=== PATIENT | male | born 2000 | race Caucasian/White ===

== ENCOUNTER 2023-04-06 09:12 | Emergency (ER) | payer MEDICAID, SELFPAY ==
[2023-04-06 09:25] VITALS: BP 159/102; PULSE 88; RESP 16; TEMP 36.8; O2SAT 98
--- NOTE | 2023-04-06 09:37 | CTR_ITS ---
PROCEDURE INFORMATION: Exam: CT Abdomen And Pelvis With Contrast Exam date and time: 04/06/2023 9:52 AM Age: 22 years old Clinical indication: Abdominal pain; Localized; Right lower quadrant (rlq); Additional info: Rlq abdominal pain, + mcburney's point TECHNIQUE: Imaging protocol: Computed tomography of the abdomen and pelvis with contrast. Radiation optimization: All CT scans at this facility use at least one of these dose optimization techniques: automated exposure control; mA and/or kV adjustment per patient size (includes targeted exams where dose is matched to clinical indication); or iterative reconstruction. Contrast material: OMNI 350; Contrast volume: 100 ml; Contrast route: INTRAVENOUS (IV); REPORTING DATA: Count of CT and Cardiac NM exams in prior 12 months: This patient has received 0 known CTs and 0 known cardiac nuclear medicine studies in the 12 months prior to the current study. COMPARISON: No relevant prior studies available. RADIATION DOSE METRICS: Total DLP (mGy-cm): 1015.52 FINDINGS: Lungs: No acute basilar lung consolidation. Liver: There is fatty change involving the liver parenchyma. Gallbladder and bile ducts: No calcified gallstones, gallbladder wall thickening, or pericholecystic inflammation. No biliary ductal dilation. Pancreas: No pancreatic enlargement, peripancreatic inflammation, or ductal dilation. Spleen: The spleen is homogeneous and is not enlarged. Adrenal glands: There is a 2.4 cm left adrenal mass with nonspecific attenuation measurements. No right adrenal mass. Kidneys and ureters: No hydronephrosis or hydroureter. Cannot exclude nonobstructing calculi as there is excreted contrast in both collecting systems and ureters. No renal mass. Stomach and bowel: No bowel obstruction or diverticulitis. Appendix: The appendix measures up to 6 mm in diameter. The appendiceal wall is well-defined and does not appear to be thickened. There is some gas in the lumen. No periappendiceal inflammation or fluid. Intraperitoneal space: No ascites or pneumoperitoneum. Vasculature: The abdominal aorta and iliofemoral arteries are normal. The mesenteric arteries are patent. The mesenteric, portal, and hepatic veins are patent. Lymph nodes: No pathologically enlarged lymph nodes. Slightly prominent right lower quadrant mesenteric lymph nodes. Urinary bladder: The urinary bladder is small in volume. No bladder calculus. Reproductive: Unremarkable as visualized. Bones/joints: No acute osseous abnormality. Soft tissues: No acute soft tissue abnormality. CT/CT abdomen pelvis w con* [id number] IMPRESSION: 1. The appendix has a normal appearance. 2. Slightly prominent right lower quadrant mesenteric lymph nodes. Mesenteric adenitis? 3. Fatty liver. 4. Left adrenal mass. Non-emergent adrenal CT is recommended. (Reference: Shiloh) REFERENCES: Shiloh LANCE, et al. Management of Incidental Adrenal Masses: A White Paper of the ACR Incidental Findings Committee. J Am Aliyah Radiol. 2017;14(8):2307-6457.
--- NOTE | 2023-04-06 09:38 | ED_ITS ---
HPI - Abdominal Pain General: Chief Complaint: Abdominal Pain Stated Complaint: pain rt side Time Seen by Provider: 04/06/23 09:13 History of Present Illness: Patient is a 22-year-old male that comes to the ED with abdominal pain. Patient denies any past surgical history of abdomen. His symptoms started yesterday evening. He states that he went out to eat while he was sitting there is when he first started noticing the pain. He describes it as a constant dull ache in the right lower quadrant of his abdomen. Pain continued throughout the night but he said it was still very dull. When he woke up this morning he was still having some pain. He went to the bathroom and had a bowel movement that he described as being normal but that worsened his abdominal pain. He rates it currently a 5 out of 10. Any movement such as walking or sitting up causes worsening sharp pain in his right lower quadrant of his abdomen. Endorses not having an appetite today. Denies any fevers, chills, nausea/vomiting, bladder or bowel symptoms. Associated Symptoms: Denies chills, constipation, diarrhea, dysuria, fever(s), hematochezia, hematuria, nausea and vomiting Review of Systems Const: Reports: change in appetite (Decreased appetite); Denies: fever(s), chills or fatigue Eyes: Denies: change in vision or eye discomfort ENMT: Denies: throat pain, odynophagia, nasal discharge or nasal congestion Card: Denies: chest pain, palpitations, edema, swelling of feet/ankles, dyspnea on exertion or orthopnea Resp: Denies: dyspnea, productive cough or non-productive cough GI: Reports: abdominal pain; Denies: nausea, vomiting, diarrhea, constipation or hematochezia : Denies: flank pain, difficulty urinating, dysuria or hematuria Musc: Denies: neck pain, back pain or extremity swelling Skin/Breast: Denies: rash or new lesions Neuro: Denies: headache(s), numbness in extremities or weakness in extremities [facility] ED PFSH: Medical History (Updated 04/06/23 @ 11:11 by NATALIIA Bear) No pertinent family history Surgical History (Updated 04/06/23 @ 11:07 by NATALIIA Bear) No pertinent past surgical history Physical Exam Const: COMMON NORMALS: no acute distress, patient oriented x3 and alert HENMT: COMMON NORMALS: normocephalic HEAD & SCALP: normocephalic MOUTH: Normal oral and palatal mucosa present THROAT: posterior oropharynx normal and uvula midline Neck/C-Spine: COMMON NORMALS: supple GENERAL: Yes normal visual inspection Resp: COMMON NORMALS: normal respiratory effort, No retractions, No use of accessory muscles and clear to auscultation bilaterally AUSCULTATION: clear to auscultation bilaterally Cardio: COMMON NORMALS: regular rate, regular rhythm, S1 normal heart sound present, S2 normal heart sound present, No gallops present (Cardio), No clicks present (Cardio), No murmurs present (Cardio) and Peripheral pulses 2+ throughout RATE: regular rate RHYTHM: regular rhythm HEART SOUNDS: S1 normal heart sound present and S2 normal heart sound present PERIPHERAL PULSES: Peripheral pulses 2+ throughout GI: COMMON NORMALS: Normal to inspection, nondistended, normoactive bowel sounds present, Soft to palpation and no masses PALPATION: Yes Soft to palpation, Yes Tenderness to palpation present (GI) Details: RLQ (Positive McBurney's point tenderness) and Yes Other GI palpation findings present (+ rovsing sign) : COMMON NORMALS: Yes no CVA tenderness BLADDER/KIDNEY EXAM: Yes no CVA tenderness Back/Pelvis: COMMON NORMALS: no CVA tenderness Extremity: COMMON NORMALS: normal to inspection Neuro: COMMON NORMALS: patient oriented x3 SENSORIUM/ORIENTATION: Yes alert GAIT: Yes Normal gait present Skin: GENERAL SKIN EXAM: dry skin Course Vital Signs: Vital signs: Vital Signs Temperature 98.2 F 04/06/23 09:25 Pulse Rate 94 04/06/23 11:27 Respiratory Rate 16 04/06/23 09:25 Blood Pressure 150/104 04/06/23 11:27 Pulse Oximetry 97 04/06/23 11:27 Oxygen Delivery Me thod Room Air 04/06/23 09:25 MDM - Abdominal Pain Medical Decision Making Patient is a 22-year-old male that comes to the ED with abdominal pain. Patient denies any past surgical history of abdomen. His symptoms started yesterday evening. He states that he went out to eat while he was sitting there is when he first started noticing the pain. He describes it as a constant dull ache in the right lower quadrant of his abdomen. Pain continued throughout the night but he said it was still very dull. When he woke up this morning he was still having some pain. He went to the bathroom and had a bowel movement that he described as being normal but that worsened his abdominal pain. He rates it currently a 5 out of 10. Any movement such as walking or sitting up causes worsening sharp pain in his right lower quadrant of his abdomen. Endorses not having an appetite today. Denies any fevers, chills, nausea/vomiting, bladder or bowel symptoms. Vitals are stable. Patient appears nontoxic in no acute distress. He does have some right lower quadrant abdominal tenderness with McBurney's point tenderness. Rest of exam is benign. Labs are all unremarkable patient's white count is 7. CT of abdomen pelvis shows normal appendix but he does have some prominent right lower quadrant mesenteric lymph nodes likely due to mesenteric adenitis. They also noticed a left adrenal mass that they thompson mmended a nonemergent adrenal CT scan to be performed. Patient lives in [place] and states that he will follow-up with a primary care doctor there and I also told him he needs to let his primary care doctor know about the adrenal gland mass and have him set up a outpatient CT for further evaluation. He was diagnosed with mesenteric adenitis and adrenal mass. He was stable for discharge home and sent home with a prescription for ibuprofen 800 mg to help with pain. Return to ED precautions given. Patient understood agree with plan. Lab Data I reviewed the patient's lab results. 04/06/23 09:40 04/06/23 09:40 Labs/Radiology: Radiology Impressions Abdomen/Pelvis CT 04/06/23 09:37 IMPRESSION: 1. The appendix has a normal appearance. 2. Slightly prominent right lower quadrant mesenteric lymph nodes. Mesenteric adenitis? 3. Fatty liver. 4. Left adrenal mass. Non-emergent adrenal CT is recommended. (Reference: Shiloh) REFERENCES: Shiloh LANCE, et al. Management of Incidental Adrenal Masses: A White Paper of the ACR Incidental Findings Committee. J Am Aliyah Radiol. 2017;14(8):1742-0770. Laboratory Results WBC 7.0 10^3/uL (4.0-10.0) 04/06/23 09:40 RBC 5.40 10^6/uL (4.1-5.3) H 04/06/23 09:40 Hgb 15.4 g/dL (11.7-16.6) 04/06/23 09:40 Hct 46.2 % (42.0-52.0) 04/06/23 09:40 MCV 85.6 fl (80-94) 04/06/23 09:40 MCH 28.5 pg (28.0-34.0) 04/06/23 09:40 MCHC 33.3 g/dL (30.0-36.0) 04/06/23 09:40 RDW 12.0 % (12.1-15.1) L 04/06/23 09:40 Plt Count 195 10^3/cmm (130-400) 04/06/23 09:40 MPV 10.6 fL (7.4-10.4) H 04/06/23 09:40 Neut % (Auto) 56.4 % 04/06/23 09:40 Lymph % (Auto) 31.7 % 04/06/23 09:40 Amite % (Auto) 7.6 % 04/06/23 09:40 Eos % (Auto) 3.2 % 04/06/23 09:40 Baso % (Auto) 0.4 % 04/06/23 09:40 Neut # (Auto) 3.93 10^3/uL (1.8-7.7) 04/06/23 09:40 Lymph # (Auto) 2.2 10^3/uL (0.8-4.8) 04/06/23 09:40 [place]ite # (Auto) 0.5 10^3/uL (0.2-0.9) 04/06/23 09:40 Eos # (Auto) 0.2 10^3/uL (0.0-0.8) 04/06/23 09:40 Baso # (Auto) 0.0 10^3/uL (0.0-0.1) 04/06/23 09:40 Nucleated RBC % (auto) 0 % 04/06/23 09:40 Nucleated RBCs # 0.0 /100WBC 04/06/23 09:40 Sodium 141 mmol/L (136-145) 04/06/23 09:40 Potassium 4.2 mmol/L (3.5-5.1) 04/06/23 09:40 Chloride 105 mmol/L (98-107) 04/06/23 09:40 Carbon Dioxide 24 mmol/L (22-29) 04/06/23 09:40 Anion Gap 16.2 (5-19) 04/06/23 09:40 BUN 12 mg/dL (6-20) 04/06/23 09:40 Creatinine 0.9 mg/dL (0.7-1.2) 04/06/23 09:40 GFR Calculation 106.5 mL/min (90-130) 04/06/23 09:40 Glucose 86 mg/dL (65-115) 04/06/23 09:40 Calculated Osmolality 291 mOsm/kg (285-295) 04/06/23 09:40 Calcium 9.1 mg/dL (8.5-10.5) 04/06/23 09:40 Total Bilirubin 0.5 mg/dL (0.15-1.2) 04/06/23 09:40 AST 35 U/L (0-40) 04/06/23 09:40 ALT 91 U/L (0-41) H 04/06/23 09:40 Alkaline Phosphatase 51 U/L (40-130) 04/06/23 09:40 Total Protein 6.9 g/dL (6.6-8.7) 04/06/23 09:40 Albumin 4.8 g/dL (3.5-5.2) 04/06/23 09:40 Globulin 2.1 g/dL (1.3-4.6) 04/06/23 09:40 Lipase 18 U/L (13-60) 04/06/23 09:40 Urine Color Yellow (Yellow) 04/06/23 09:49 Urine Appearance Clear (CLEAR) 04/06/23 09:49 Urine pH 5 (5-7) 04/06/23 09:49 Ur Specific [place] 1.015 (1.005-1.030) 04/06/23 09:49 Urine Protein Neg (Negative) 04/06/23 09:49 Urine Glucose (UA) Norm (Normal) 04/06/23 09:49 Urine Ketones Negative (Negative) 04/06/23 09:49 Urine Blood Trace (Negative) H 04/06/23 09:49 Urine Nitrate Negative (Negative) 04/06/23 09:49 Urine Bilirubin Neg (Negative) 04/06/23 09:49 Urine Urobilinogen Norm mg/dL (Negative) 04/06/23 09:49 Ur Leukocyte Esterase Negative (Negative) 04/06/23 09:49 Urine RBC 0-4 /hpf (0-2) H 04/06/23 09:49 Urine WBC 0-4 /hpf (0-5) H 04/06/23 09:49 Ur Squamous Epith Cells 0-4 /hpf (0-5) H 04/06/23 09:49 Amorphous Sediment Not Reportable 04/06/23 09:49 Urine Bacteria Trace /hpf (NONE) 04/06/23 09:49 Discharge Plan Discharge Patient Disposition: Home Clinical Impression: Mesenteric adenitis, Adrenal mass 1 cm to 4 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 The CT found a 2.4 cm left adrenal mass and it was recommended that you get an outpatient adrenal CT performed for further evaluation. Take medications as prescribed. Return to the ER or your medical provider if condition worsens. Please read and understand discharge instructions. Thank you for choosing [facility] for your healthcare needs today. Please realize this is an emergency room and that we are providing you with a medical screening exam and this may not be complete and all inclusive of all the testing and or work up that you may need to determine your ailment or severity of your illness. It is very important that you follow up as instructed or that you return to the Emergency Department should you have concerns or if your condition changes or worsens in any way. Coding Level of Care Code ED Safety Compliance Specialist for Dangelo Gaspar
[2023-04-06 09:50] LABS: Basophils % 0.4 %; Eosinophils # 0.2 10^3/uL (0.0-0.8); Eosinophils % 3.2 %; Hematocrit 46.2 % (42.0-52.0); Hemoglobin 15.4 g/dL (11.7-16.6); Lymphocytes # 2.2 10^3/uL (0.8-4.8); Lymphocytes % 31.7 %; Mean Corpuscular HGB Conc 33.3 g/dL (30.0-36.0); Mean Corpuscular Hemoglobin 28.5 pg (28.0-34.0); Mean Corpuscular Volume 85.6 fl (80-94); Mean Platelet Volume 10.6 fL (7.4-10.4); Monocytes # 0.5 10^3/uL (0.2-0.9); Monocytes % 7.6 %; Neutrophils # 3.93 10^3/uL (1.8-7.7); Neutrophils % 56.4 %; Nucleated Red Blood Cells % 0 %; Platelet Count 195 10^3/cmm (130-400)
[2023-04-06] MEDS: iohexol 350 mg/mL 500 mL Btl (per mL) IV (09:55)
[2023-04-06 10:04] LABS: Alanine Aminotransferase 91 U/L (0-41); Albumin Level 4.8 g/dL (3.5-5.2); Alkaline Phosphatase 51 U/L (40-130); Anion Gap 16.2 (5-19); Aspartate Amino Transferase 35 U/L (0-40); Blood Urea Nitrogen 12 mg/dL (6-20); Calcium 9.1 mg/dL (8.5-10.5); Carbon Dioxide 24 mmol/L (22-29); Chloride 105 mmol/L (98-107); Globulin 2.1 g/dL (1.3-4.6); Glomerular Filtration Rate 106.5 mL/min (90-130); Glucose 86 mg/dL (65-115); Lipase 18 U/L (13-60); Osmolality Calculated 291 mOsm/kg (285-295); Potassium 4.2 mmol/L (3.5-5.1); Sodium 141 mmol/L (136-145); Total Bilirubin 0.5 mg/dL (0.15-1.2); Total Protein 6.9 g/dL (6.6-8.7)
[2023-04-06 10:23] LABS: Add Urine Culture? No; Add Urine Microscopic? YES; Bacteria Urine TRACE /hpf; Bilirubin Urine Neg (Negative); Blood Urine Trace (Negative); Glucose Urine UA Norm (Normal); Ketones Urine Negative (Negative); Leukocyte Esterase Urine Negative (Negative); Nitrate Urine Negative (Negative); Protein Urine Neg (Negative); RBC Urine 0-4 /hpf (0-2); Specific Gravity, Urine 1.015 (1.005-1.030); Squamous Epithelial Cell Urine 0-4 /hpf (0-5); Urine Appearance Clear (CLEAR); Urine Color Yellow (Yellow); Urobilinogen Urine Norm (Negative); WBC Urine 0-4 /hpf (0-5); pH Urine 5 (5-7)
[2023-04-06] MEDS: ketorolac 30 mg/mL INJ IVP (11:10)
[2023-04-06 11:27] VITALS: BP 150/104; PULSE 94; O2SAT 97
== END 2023-04-06 11:28 | disposition home or self-care (01) ==
PROVIDERS: Emergency Provider Physician Assistant
DX: I88.0 Nonspecific mesenteric lymphadenitis (principal); E27.8 Other specified disorders of adrenal gland
CPT/HCPCS: 36415; 74177; 80053; 81001; 83690; 85025; 96374; 99285; J1885; Q9967